=== PATIENT | male | born 1990 | race Hispanic/Latino ===

== ENCOUNTER 2018-06-25 08:51 | Day surgery (SDC) | payer SELFPAY ==
[2018-06-25] MEDS ORDERED: Morphine 4 MG/ML VIAL ONE ×2 (09:23→11:28)
[2018-06-25] MEDS ORDERED: Ondansetron PF 4 MG/2 ML Vial ONE ×3 (09:24→12:14)
[2018-06-25 09:38] LABS: #Basophils 0.1 thou/uL (0.0-0.2); #Eosinphils 0.2 thou/uL (0.0-0.7); #Monocytes 0.6 thou/uL (0.11-0.59); #Neutrophils 2.5 thou/uL (1.40-6.50); %Basophils 1.7 % (0.0-1.0); %Eosinophils 3.4 % (0.0-10.0); %Lymphocytes 37.6 % (21.0-51.0); %Monocytes 11.5 % (0.0-10.0); %Neutrophils 45.7 % (42.0-75.0); Hemoglobin 15.9 g/dL (14.0-18.0); Mean Corpuscular HGB CONC 32.8 g/dL (32.0-36.0); Mean Corpuscular Volume 88.4 fL (78.0-98.0); Mean Platelet Volume 9.2 fL (7.4-10.4); Platelet Count 175 thou/uL (130-400); RBC Distribution Width 11.1 % (11.5-14.5); Red Blood Cell (RBC) Count 5.48 mill/uL (4.70-6.10); White Blood Cell (WBC) Count 5.4 thou/uL (4.8-10.8)
[2018-06-25 10:01] LABS: ALT (SGPT) 73 U/L (8-55); AST (SGOT) 34 U/L (5-34); Albumin 4.4 g/dL (3.5-5.0); Alkaline Phosphatase 65 U/L (40-150); Anion Gap 11 mmol/L (10-20); BUN (Urea Nitrogen) 16 mg/dL (8.9-20.6); Bilirubin, Total 0.9 mg/dL (0.2-1.2); Calc. Creatinine Clearance 0 mL/min (70-130); Calcium 9.5 mg/dL (7.8-10.44); Carbon Dioxide 28 mmol/L (22-29); Chloride 106 mmol/L (98-107); Estimated GFR-MDRD 85; Globulin 2.7 g/dL (2.4-3.5); Glucose 103 mg/dL (70-105); Potassium 3.7 mmol/L (3.5-5.1); Protein, Total 7.1 g/dL (6.0-8.3); Sodium 141 mmol/L (136-145)
[2018-06-25] MEDS ORDERED: ISOVUE-370 76%-LOCM 1 ML ONE (10:08)
--- NOTE | 2018-06-25 11:12 | CT ---
CT OF THE ABDOMEN AND PELVIS: DATE: 06/25/2018. COMPARISON: None. HISTORY: Inguinal pain, right inguinal hernia. TECHNIQUE: Axial CT imaging at 5 mm intervals from the lung bases through pubic symphysis with intravenous contr ast. Coronal reformatted imaging obtained. FINDINGS: The lack of oral contrast limits assessment of the bowel. The imaged lung bases are unremarkable. There is no free intraperitoneal air. The liver, gallbladder, spleen, pancreas, adrenal glands, and kidneys are unremarkable. There is no evidence for bowel obstruction. Appendix appears grossly unremarkable. There is a prominent fat-containing inguinal hernia on the right. There is fluid seen within the inf erior aspect of the right inguinal hernia superior to the right testicle. This fluid within the dist al aspect of the inguinal hernia extending into the superior aspect of the right hemiscrotum measures 8.7 x 3.7 cm. There is mild stranding of the fat within the right inguinal hernia suggesting associ ated inflammatory change. In addition, there is subtle stranding of the mesenteric fat in the right lower quadrant which could signify inflammatory change associated with traction from the right inguin al hernia. There is a very small left inguinal hernia as well. The vascular structures of the abdomen and pelvis appear patent. No lymphadenopathy is noted within the abdomen or pelvis. The osseous structures demonstrate no worrisome lytic or blastic lesions. IMPRESSION: Prominent fat-containing inguinal hernia on the right with associated inflammatory change and fluid w ithin the hernia sac itself extending into the right hemiscrotum with significant fluid along the inf erior margin of the inguinal hernia and right hemiscrotum. There is also mild stranding of the fat i n the right lower quadrant which could signify associated inflammatory change, possibly on the basis of traction from this hernia. No associated bowel obstruction. Results called to Dr. Russell at 10:15 a.m. 06/25/2018. CODE CR POS: [facility]
[2018-06-25] MEDS ORDERED: Piperacillin/Tazobactam 3.375 GM VIAL ONE (11:13)
[2018-06-25] MEDS ORDERED: Sodium Chloride 0.9% 100 ML ONE (11:13)
[2018-06-25] MEDS ORDERED: PROPOFOL 200 MG/20 ML VIAL ONE (12:14)
[2018-06-25] MEDS ORDERED: Dexamethasone 20 MG/5 ML VIAL ONE (12:14)
[2018-06-25] MEDS ORDERED: Glycopyrrolate 0.2 MG/ML 5 ML SYRINGE ONE (12:14)
[2018-06-25] MEDS ORDERED: Ketorolac Tromethamine 30 MG/ML VIAL ONE (12:14)
--- NOTE | 2018-06-25 13:27 | HP ---
CHIEF COMPLAINT: Right inguinal pain. HISTORY: Mr. Guevara is a 28-year-old man, who presented to the emergency room with severe right inguinal and scrotal pain. He has a known right inguinal hernia present for over a year and has seen Dr. Perea to schedule repair. He was waiting on approval from the [employer] since he is uninsured and finally received that approval, but had not yet scheduled his surgery. He reports that when he woke up this morning, he was having a lot of pain in the scrotal area, which was not getting any better. He had nausea, but no vomiting. He denies any fevers or chills. He had been told to come in if he had worsening of his pain, so he came to the emergency room. Since receiving pain medicine in the operating room, he is feeling better, but a CT scan showed fluid and fatty tissue and stranding in the right inguinal area. He states that the hernia comes out every day, but usually goes away when he goes to sleep. PAST MEDICAL HISTORY: None. PAST SURGICAL HISTORY: Thumb surgery. FAMILY HISTORY: Noncontributory. MEDICATIONS: Does not take any medications. ALLERGIES: NO KNOWN ALLERGIES. SOCIAL HISTORY: He does not smoke or use illicit drugs and drinks only rarely and not to excess. 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 PHYSICAL EXAMINATION: VITAL SIGNS: The patient is afebrile with normal vital signs. HEENT: Unremarkable. NECK: Supple without lymphadenopathy or thyroid nodules. HEART: Regular in its rate and rhythm without murmurs, rubs, or gallops. LUNGS: Clear to auscultation bilaterally. ABDOMEN: Soft, nontender, and nondistended. Right groin and testicle are quite swollen and moderately tender, but with elevation and compression, the hernia was able to be reduced. He still has tenderness in the inguinal canal. No palpable bulge with cough or Valsalva on the left. EXTREMITIES: Warm and well perfused without edema. NEURO: No focal deficits. PSYCHIATRIC: Alert, oriented, and appropriate. ASSESSMENT: Right inguinal hernia, transiently incarcerated but able to be reduced at the bedside. I have recommended repair to prevent recurrent incarceration and the patient is agreeable with this plan. Inherent risks of surgery were discussed. These include, but are not limited to bleeding, infection, risks of anesthesia, damage to nearby structures including spermatic cord, testicular artery and vein and nerves which supply sensation to the scrotum and thigh. He understands and accepts these risks and wishes to proceed. He has been posted for the operating room. All of his questions were answered. Job ID: [id number]
[2018-06-25] MEDS ORDERED: Bupivacaine HCl 0.25%/Epi 0.0005/PF 10 ML VIAL FS ONE ×2 (14:52)
[2018-06-25] MEDS ORDERED: Fentanyl 100 MCG/2 ML VIAL ONE ×2 (15:09→17:48)
[2018-06-25] MEDS ORDERED: Bupivacaine PF 0.5% 30 ML VIAL ONE (15:36)
[2018-06-25] MEDS ORDERED: Promethazine HCl 25 MG/ML VIAL ONE (19:14)
[2018-06-25] MEDS ORDERED: Sodium Chloride 0.9% 10 ML ONE (19:15)
--- NOTE | 2018-06-28 12:50 | OP ---
DATE OF PROCEDURE: 06/25/2018 PROCEDURE PERFORMED: Right inguinal hernia repair. PREOPERATIVE DIAGNOSIS: Right inguinal hernia, transiently incarcerated. POSTOPERATIVE DIAGNOSIS: Right inguinal hernia, transiently incarcerated, indirect. HISTORY: Mr. Guevara is a 28-year-old man with a long-standing right inguinal hernia, which is symptomatic, but reducible. He presented to the emergency room with an incarcerated hernia and severe pain; however, I was able to reduce this at the bedside. Recommendation was made to proceed with urgent repair to prevent recurrent incarceration. FINDINGS: Large indirect defect with thickened peritoneal sac due to recent incarceration. DESCRIPTION OF PROCEDURE: After informed consent was obtained and appropriate preoperative antibiotics were administered, the patient was taken to the operating room, placed in the supine position and general endotracheal anesthesia was administered. The inguinal area was prepped and draped in the standard sterile fashion and local anesthesia was infused to the skin and subcutaneous tissues overlying the inguinal canal. An oblique skin incision was made in the direction of the skin crease. Dissection was carried down to the external oblique aponeurosis which was carefully incised in the direction of its fibers through the enlarged external ring. The aponeurosis was mobilized off the underlying structures. The ilioinguinal nerve was clearly identified and avoided for the remainder of the case. The inguinal cord was mobilized at the level of the pubic tubercle. The cremasteric muscles were divided and the cord contents and floor of the canal were carefully examined. An indirect hernia was identified. The hernia sac was dissected free of the cord contents down to the level of the peritoneal reflection. The hernia sac was opened and (was empty/the contents reduced into the abdominal cavity). The base of the hernia sac was encircled with a pursestring 3-0 Vicryl suture. The pursestring suture was secured and the hernia sac was resected. The base of the hernia sac was tied to the base of the Perfix plug. The Perfix plug was then placed into the internal ring and was tacked down to the internal oblique in a couple of locations. The patch was then secured to the pubic tubercle inferiorly, to the shelving edge of the inguinal ligament laterally, and secured at intervals to the internal oblique medially. A keyhole slit was created and placed around the inguinal cord contents and secured, and the ends secured to each other and to the underlying plug. The operative site was irrigated and hemostasis verified. Local anesthesia was infused into the muscles of the internal oblique medially. The On-Q pump was then tunneled into the wound and placed into the inguinal canal and primed. The external oblique aponeurosis was then closed with 2-0 Vicryl suture, taking care not to pull up any of the underlying cord contents or the On-Q pump tubing into the closure, and the remainder of the local was infused into the subcutaneous tissues circumferentially and to the skin. Kelly's fascia was reapproximated with 3-0 Monocryl sutures and the skin was closed with 4-0 subcuticular Monocryl sutures. Dermabond dressings were placed and the On-Q tubing secured with a Steri-Strip and dressed with Dermabond. The patient was extubated and taken to the recovery room in good condition. Estimated blood loss was minimal. There were no complications. Specimen is hernia sac. Job ID: [id number] [facility]
== END 2018-06-25 20:20 | disposition home or self-care (01) ==
LOC: ERS 08:51
PROVIDERS: ATTEND Surgery
PROC: 0YU54JZ Supplement Right Inguinal Region with Synthetic Substitute, Percutaneous Endoscopic Approach (ICD-10-PCS; principal; 2018-06-25)
DX: K40.30 Unilateral inguinal hernia, with obstruction, without gangrene, not specified as recurrent (principal); Z98.890 Other specified postprocedural states
CPT/HCPCS: 74177; 80053; 85025; 88302; 96361; 96365; 96375; A4306; C1781; J1100; J1885; J2270; J2405; J2543; J2550; J2704; J3010; J7050; Q9966; S0020

== ENCOUNTER 2020-04-09 08:18 | Emergency (ER) | payer SELFPAY ==
[2020-04-09] MEDS ORDERED: HYDROcodone/Acetaminophen 10/325 mg Tablet ONE (09:00)
== END 2020-04-09 08:46 | disposition home or self-care (01) ==
LOC: ERS 08:18
DX: B02.9 Zoster without complications (principal)
CPT/HCPCS: 99282

== ENCOUNTER 2020-11-11 10:20 | Emergency (ER) | payer SELFPAY | END 2020-11-11 11:50 | disposition home or self-care (01) | LOC: ERS 10:20 | DX: L03.113 Cellulitis of right upper limb (principal) | CPT/HCPCS: 99283 ==

== ENCOUNTER 2023-12-30 16:10 | Emergency (ER) | payer SELFPAY ==
[2023-12-30] MEDS ORDERED: Ibuprofen 800 MG TAB ONE (18:45)
== END 2023-12-30 19:00 | disposition home or self-care (01) ==
LOC: ERS 16:10
DX: M25.462 Effusion, left knee (principal)